=== PATIENT | male | born 1975 | race Caucasian/White ===

== ENCOUNTER 2020-08-12 01:19 | Inpatient (IN) | payer OTHER, MEDICAID ==
[2020-08-12] VITALS (20 sets, daily range): BP systolic 103–131; BP diastolic 66–87
[~2020-08-12] VITALS: Ht 175.3 cm; Wt 71.5 kg
[2020-08-12] MEDS ORDERED: FENTANYL-0.9 % NACL/PF 100 ML IV PRN ×2 (01:25→03:00)
[2020-08-12] MEDS ORDERED: midazolam 100mg in NS 100ml 100 ML IV PRN ×2 (01:25→03:00)
[2020-08-12] MEDS ORDERED: midazolam 2 mg/2 ml injection ONE (01:31)
[2020-08-12] MEDS ORDERED: MIDAZolam 5mg/ml 2ml vial IV ONE (01:35)
[2020-08-12] MEDS ORDERED: NO HOME MEDS (01:36)
[2020-08-12 01:45] LABS: ABG BASE EXCESS -2.6 mmol/L (-2.0-2.0); ABG HCO3 22.4 mmol/L (22.0-26.0); ABG OXYGEN SATURATION 98.7 % (94-97); ABG PCO2 (T) 38.9 mmHg (35.0-48.0); ABG PO2 (T) 140.7 mmHg (75.0-100.0); ALLEN'S TEST POSITIVE; FCOHb 0.3 % (0.0-3.9); FMetHb 0.1 % (0.0-1.5); FO2Hb 98.3 % (94-97); PATIENT TEMPERATURE 36.4; PEEP 5 cm H2O; RESPIRATORY RATE 16 b/min; TIDAL VOLUME 500 mL; TOTAL HEMOGLOBIN 9.7 G/dl (14.0-18.0)
[2020-08-12] MEDS ORDERED: LIDOcaine 2% 10ml TOPICAL JELLY (Urojet) MM ONE (01:50)
[2020-08-12 01:58] LABS: CLARITY,URINE CLEAR (Clear); COLOR,URINE YELLOW (Yellow); GLUCOSE, URINE NEGATIVE (Neg); KETONES,URINE 15 mg/dl (Neg); LEUKOCYTE ESTERASE ,URINE NEGATIVE (Neg); NITRITES, URINE NEGATIVE (Neg); OCCULT BLOOD,URINE MODERATE (Neg); PROTEIN,URINE NEGATIVE (Neg); UROBILINOGEN,URINE 0.2 E.U/dL (0.2-1.0)
[2020-08-12 02:00] LABS: UA COLLECTION TYPE FOLEY CATH
[2020-08-12 02:04] LABS: BACTERIA,URINE 3+ /HPF (Neg); RBC,URINE 50-100 /HPF (0-2); SQUAMOUS EPITHELIAL CELL,UR NONE SEEN /LPF (FEW); WBC,URINE 20-30 /HPF (0-4)
[2020-08-12 02:34] LABS: BASOPHILS % (AUTO) 0.3 % (0-1); EOSINOPHILS # (AUTO) 0.1 X10'3 (0-0.9); EOSINOPHILS % (AUTO) 0.6 % (0-6); HEMATOCRIT 32.2 % (42.0-52.0); LYMPHOCYTES # (AUTO) 2.1 X10'3 (1.1-4.8); LYMPHOCYTES % (AUTO) 23.1 % (21-51); MEAN CORPUSCULAR HEMOGLOBIN 22.3 PG (27.0-31.0); MEAN CORPUSCULAR HGB CONC 31.1 g/dL (33.0-36.5); MEAN CORPUSCULAR VOLUME 71.8 FL (78-98); MEAN PLATELET VOLUME 8.7 FL (7.4-10.4); MONOCYTES % (AUTO) 10.4 % (2-12); NEUTROPHILS # (AUTO) 6.1 X10'3 (1.8-7.7); NEUTROPHILS % (AUTO) 65.6 % (42-75); PLATELET COUNT 222 X10'3 (140-440); RED BLOOD COUNT 4.49 X10'6 (4.70-6.10); RED CELL DISTRIBUTION WIDTH 16.8 % (11.5-14.5); WHITE BLOOD COUNT 9.3 X10'3 (4.5-11.0)
[2020-08-12 02:45] LABS: ALANINE AMINOTRANSFERASE 27 U/L (12-78); ALBUMIN 3.5 G/DL (3.4-5.0); ALKALINE PHOSPHATASE 98 IU/L (46-116); ANION GAP 8 (8-16); ASPARTATE AMINO TRANSFERASE 29 U/L (10-37); BILIRUBIN,TOTAL 0.9 MG/DL (0.1-1.0); BLOOD UREA NITROGEN 17 MG/DL (7-18); BUN/CREATININE RATIO 16.8 (5.4-32.0); CALCIUM 8.2 MG/DL (8.5-10.1); CHLORIDE 106 MMOL/L (99-107); CREATININE 1.01 MG/DL (0.60-1.10); GLUCOSE 85 MG/DL (70-104); POTASSIUM 3.7 MMOL/L (3.5-5.1); SODIUM 142 MMOL/L (135-145); TOTAL CARBON DIOXIDE 27.8 MMOL/L (24-32); eGFR 80 ML/MIN
[2020-08-12 02:52] LABS: TROPONIN I < 0.04 NG/ML (0.0-0.05)
[2020-08-12] MEDS ORDERED: potassium Cl 20 mEq SR tablet PO PRN ×2 (03:00)
[2020-08-12] MEDS ORDERED: ondansetron/PF 4mg/2ml inj IV PRN (03:00)
[2020-08-12] MEDS ORDERED: ipratropium/albuterol 3ml nebule NEB PRN ×2 (03:00→17:10)
[2020-08-12] MEDS: K, MAG and/or Phos replacement - Verify level? MC SCH ×2 (03:00→07:48)
[2020-08-12] MEDS ORDERED: LIDOcaine 2% 10ml TOPICAL JELLY (Urojet) TP ONE (03:00)
[2020-08-12] MEDS ORDERED: potassium Cl 40MEQ/1/2NS 520ml 520 ML IV PRN ×2 (03:00)
[2020-08-12] MEDS ORDERED: acetaminophen 325mg tablet PO PRN ×2 (03:00)
[2020-08-12] MEDS ORDERED: acetaminophen 650mg rectal suppository RC PRN (03:00)
[2020-08-12] MEDS ORDERED: MESSAGE TO PHARMACY PO ONE (03:20)
[2020-08-12] MEDS ORDERED: dextrose ORAL solution 15 GM/59 ML bottle PO PRN ×2 (03:20)
[2020-08-12] MEDS ORDERED: insulin Lispro (HumaLOG) vial - multi-dose SQ SCH (03:20)
[2020-08-12] MEDS ORDERED: dextrose 50%-water 50ml dispensing syringe IV PRN ×2 (03:20)
[2020-08-12] MEDS ORDERED: glucagon, human recombinant 1mg kit SUBCUT PRN (03:20)
[2020-08-12 03:43] LABS: HEMOGLOBIN A1C 4.7 % (4.5-6.2)
--- NOTE | 2020-08-12 04:25 | NUR ---
RN Note -Admission pt admitted on vent
[2020-08-12] MEDS: normal saline 1000ml 1,000 ML IV SCH ×2 (05:26→16:30)
[2020-08-12] MEDS: enoxaparin 40mg/0.4ml syringe SUBCUT SCH (07:48)
--- NOTE | 2020-08-12 11:37 | NUR ---
Initial: Pt admit with acute respiratory failure/arrest secondary to overdose. Pt intubated at this time and documented with an OG tube in place, no TF consult at this time. Recommendations below for if expected prolonged intubation and to receive nutrition support. Will continue to follow closely. Recommendations: 1) IF TF, continuous Vital AF with goal rate of 70 mL/hr 2) IF TF, additional 200 mL water flush Q4H 3) IF TF, prealbumin q Saturday/, daily weights 4) PO diet advancement to regular as medically indicated following extubation 5) Routine bowel care Addendum: 08/12/20 at [address] Amended: Links added.
[2020-08-12] MEDS ORDERED: racepinephrine 11.25mg/0.5ml nebule NEB PRN (17:10)
--- NOTE | 2020-08-12 17:49 | NUR ---
Patient taken off versed and fentanyl at approximately 1030. Patient began to wake up late afternoon. Met weaning protocol. Extubated at 1720. Bilateral wrist restraints removed. Patient drowsy but easily arousable. VSS. Resting comfortably at this time. Will continue to monitor.
--- NOTE | 2020-08-12 18:00 | NUR ---
I have reviewed and agree with all medications administered and interventions performed by [facility] Student, Jamaal Shafer.
[2020-08-12] MEDS: ipratropium/albuterol 3ml nebule NEB SCH (20:09)
[2020-08-12] MEDS ORDERED: insulin glargine (Lantus) pen - multi-dose SQ SCH (21:00)
[2020-08-13] VITALS (14 sets, daily range): BP systolic 103–124; BP diastolic 60–82
[2020-08-13] MEDS: ipratropium/albuterol 3ml nebule NEB SCH ×2 (03:02→09:00)
[2020-08-13] MEDS: normal saline 1000ml 1,000 ML IV SCH (05:33)
--- NOTE | 2020-08-13 06:30 | NUR ---
Patient in room ICU 2045. I have received report from Silvana and had the opportunity to ask questions and assume patient care.
[2020-08-13 07:07] LABS: BASOPHILS % (AUTO) 0.2 % (0-1); EOSINOPHILS % (AUTO) 0.3 % (0-6); HEMATOCRIT 29.7 % (42.0-52.0); HEMOGLOBIN 9.3 g/dl (14.0-17.9); LYMPHOCYTES # (AUTO) 1.6 X10'3 (1.1-4.8); LYMPHOCYTES % (AUTO) 15.8 % (21-51); MEAN CORPUSCULAR HEMOGLOBIN 22.4 PG (27.0-31.0); MEAN CORPUSCULAR HGB CONC 31.3 g/dL (33.0-36.5); MEAN CORPUSCULAR VOLUME 71.6 FL (78-98); MEAN PLATELET VOLUME 9.4 FL (7.4-10.4); MONOCYTES # (AUTO) 0.9 X10'3 (0-0.9); NEUTROPHILS # (AUTO) 7.4 X10'3 (1.8-7.7); NEUTROPHILS % (AUTO) 74.7 % (42-75); PLATELET COUNT 237 X10'3 (140-440); RED BLOOD COUNT 4.15 X10'6 (4.70-6.10); RED CELL DISTRIBUTION WIDTH 16.8 % (11.5-14.5); WHITE BLOOD COUNT 9.9 X10'3 (4.5-11.0)
[2020-08-13 07:25] LABS: ALANINE AMINOTRANSFERASE 22 U/L (12-78); ALBUMIN 2.6 G/DL (3.4-5.0); ALBUMIN/GLOBULIN RATIO 0.7 (1.1-1.5); ALKALINE PHOSPHATASE 84 IU/L (46-116); ANION GAP 8 (8-16); ASPARTATE AMINO TRANSFERASE 17 U/L (10-37); BILIRUBIN,TOTAL 0.4 MG/DL (0.1-1.0); BLOOD UREA NITROGEN 16 MG/DL (7-18); BUN/CREATININE RATIO 16.7 (5.4-32.0); CALCIUM 7.7 MG/DL (8.5-10.1); CHLORIDE 105 MMOL/L (99-107); CREATININE 0.96 MG/DL (0.60-1.10); GLUCOSE 102 MG/DL (70-104); MAGNESIUM 2.2 MG/DL (1.5-2.4); POTASSIUM 3.9 MMOL/L (3.5-5.1); SODIUM 139 MMOL/L (135-145); TOTAL CARBON DIOXIDE 26.5 MMOL/L (24-32); TOTAL PROTEIN 6.3 G/DL (6.4-8.2); eGFR 85 ML/MIN
[2020-08-13] MEDS: K, MAG and/or Phos replacement - Verify level? MC SCH (08:00)
[2020-08-13] MEDS ORDERED: mineral oil/petrolatum ophthal oint EACHEYE SCH (08:00)
[2020-08-13] MEDS: enoxaparin 40mg/0.4ml syringe SUBCUT SCH (08:00)
[2020-08-13] MEDS ORDERED: VANCOmycin 1250MG/NS 250ml Bag 250 ML IV SCH (10:15)
[2020-08-13] MEDS ORDERED: HYDROcodone/acetaminophen 10/325mg tab PO PRN (10:20)
[2020-08-13] MEDS ORDERED: morphine 2 MG/ML inj. syringe IV PRN (10:25)
[2020-08-13] MEDS ORDERED: LEVO500T89 PO (10:28)
[2020-08-13] MEDS ORDERED: piperacillin/tazo 4.5gm/100ml 100 ML IV ONE (10:40)
--- NOTE | 2020-08-13 10:47 | NUR ---
dr silva in, [id number] re temp and pts desire to go home. pt agreed to stay 1 more night for abx, then he would go [facility] . has agreed to get the 2 new abx before leaving. pt pleasant. fc dcd.
[2020-08-13] MEDS ORDERED: vancomycin 1,750 MG in NS 350ml IV soln IV ONE (11:00)
--- NOTE | 2020-08-13 14:20 | NUR ---
zosyn and vancomycin complete. levofloxacin called into [facility] in [place]. out via [facility]
--- NOTE | 2020-08-13 15:30 | NUR ---
ear pod case with one ear pod found in bed linens. labeled and placed at nursing station. pts brother called to let him know- will notify brother.
[2020-08-13] MEDS ORDERED: piperacillin/tazo 4.5gm/100ml 100 ML IV SCH (20:00)
[2020-08-14] MEDS ORDERED: vancomycin/NS 1 GM ADD-VANTAGE 250 ML IV SCH
[2020-08-14] MEDS ORDERED: VANCOMYCIN LEVEL IV ONE (23:30)
== END 2020-08-13 14:33 | disposition left against medical advice (07) | DRG 871 ==
LOC: ER 01:19 → ED HOLD 02:56 → ICU 2S 04:10
PROVIDERS: ADMIT Internal Medicine Critical Care Medicine; ATTEND Internal Medicine Critical Care Medicine
PROC: 5A1935Z Respiratory Ventilation, Less than 24 Consecutive Hours (ICD-10-PCS; principal; 2020-08-12)
PROC: 0BH17EZ Insertion of Endotracheal Airway into Trachea, Via Natural or Artificial Opening (ICD-10-PCS; 2020-08-12)
DX: A41.9 Sepsis, unspecified organism (principal); J96.00 Acute respiratory failure, unspecified whether with hypoxia or hypercapnia; G93.40 Encephalopathy, unspecified; T50.991A Poisoning by other drugs, medicaments and biological substances, accidental (unintentional), initial encounter; F19.10 Other psychoactive substance abuse, uncomplicated; B95.62 Methicillin resistant Staphylococcus aureus infection as the cause of diseases classified elsewhere; F15.10 Other stimulant abuse, uncomplicated; Z53.29 Procedure and treatment not carried out because of patient's decision for other reasons; Y92.89 Other specified places as the place of occurrence of the external cause
CPT/HCPCS: 36415; 36600; 71045; 80053; 81001; 82803; 82948; 83036; 83605; 83735; 83880; 84100; 84145; 84484; 85018; 85025; 87040; 87070; 87077; 87081; 87088; 87185; 93005; 94002; 94640; 94760; 96365; 96368; 99291; G0378; J1650; J1815; J2250; J2543; J3010; J3370; J7030; J7040